=== PATIENT | male | born 1970 | race Caucasian/White ===

== ENCOUNTER 2016-08-10 07:24 | Emergency (ER) | payer OTHER ==
[~2016-08-10] VITALS: Ht 177.8 cm; Wt 136.1 kg
[~2016-08-10 07:24] MED LIST: CLARITIN10 MG PO; NEURONTIN300 MG; QUALITY CHOICE20 M1 PO; VIBRAMYCIN 100100 MG PO; WELLBUTRIN XL150 MG
[2016-08-10 07:30] VITALS: BP 142/85
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
[2016-08-10] MEDS ORDERED: MEDROL4 M2 PO (08:02)
[2016-08-10] MEDS ORDERED: OXYCODONE HCL5 M2 PO (08:02)
== END 2016-08-10 08:10 ==
LOC: ERH 07:24
DX: M54.16 Radiculopathy, lumbar region (principal)
CPT/HCPCS: 96372; J1885

== ENCOUNTER 2017-09-07 18:07 | Emergency (ER) | payer OTHER ==
[~2017-09-07] VITALS: Ht 177.8 cm; Wt 134.7 kg
[~2017-09-07 18:07] MED LIST changes: +MEDROL4 M2 PO; +OXYCODONE HCL5 M2 PO
[2017-09-07 18:21] VITALS: BP 129/87
--- NOTE | 2017-09-07 18:36 | ED GENERAL ADULT ---
History of Present Illness General Chief Complaint: Sore Throat, Dental Pain Stated Complaint: SORE THROAT Source: patient Exam Limitations: no limitations Vital Signs & Intake/Output Vital Signs & Intake/Output Vital Signs Date Time Temp Pulse Resp B/P B/P Pulse O2 O2 Flow FiO2 Mean Ox Delivery Rate 09/07 1917 Room Air 09/07 1858 98.4 09/07 1821 98.4 94 18 129/87 97 Room Air Allergies Coded Allergies: Penicillins (Severe, ANAPHALACTIC 08/10/16) venom-honey bee (Severe, ANAPHALACTIC 08/10/16) Reconcile Medications Bupropion Hydrochloride (Wellbutrin XL) (Unknown Strength) T24 (Unknown Dose) MENTAL HEALTH (Reported) Clarithromycin 500 MG TABLET 1 TAB PO BID PHARYNGITIS Gabapentin (Neurontin) (Unknown Strength) CAP (Unknown Dose) BID NEUROPATHY ( Reported) Ibuprofen 600 MG TABLET 1 TAB PO TID PRN PAIN with food Methylprednisolone. (Medrol) 4 MG TAB.DS.PK 1 DP PO AD radiculopaty 6 on day 1 then reduce by one tablet daily until gone OMEPRAZOLE MAGNESIUM (Omeprazole Magnesium) 20 MG ECC 1 CAP PO DAILY GI ( Reported) Oxycodone HCl 5 MG CAPSULE 1 CAP PO BID PRN pain Triage Note: RECEIVED 47 YO MALE C/O SORE THOAT WITH DIFFICULTY SWALLOWING, STARTED YESTERDAY. NO C/O CP, SOME SOB. UNABLE TO DRINK OR EAT AT PRESENT. Triage Nurses Notes Reviewed? yes Onset: Abrupt Duration: day(s): Timing: recent history HPI: 09/07/17 47-year-old man presents to the emergency department complaining of sore throat. The patient states he has had a sore throat for the past 48 hours. He says he does have difficulty swallowing. He denies fever. No shortness of breath or chest pain. He says he has a history of diet-controlled diabetes. He says that he has had many jolly rancher's today that have been helping with his sore throat. He denies vomiting or other complaints. Past History Travel History Traveled to [place] past 21 day No Medical History Any Pertinent Medical History? 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 No Review of Systems Review of Systems Constitutional: Denies: fever. EENTM: Reports: throat pain. Respiratory: Denies: cough, short of breath. Cardiovascular: Denies: chest pain. GI: Denies: abdominal pain. Genitourinary: Reports: no symptoms. Musculoskeletal: Reports: no symptoms. Skin: Reports: no symptoms. Neurological/Psychological: Reports: no symptoms. Hematologic/Endocrine: Reports: no symptoms. Immunologic/Allergic: Reports: no symptoms. Physical Exam Physical Exam General Appearance: well developed/nourished, alert, awake, anxious, mild distress Head: atraumatic, normal appearance Eyes: Bilateral: normal appearance, PERRL, EOMI. Ears, Nose, Throat: pharyngeal erythema, tonsillar exudate Neck: normal inspection, supple, full range of motion Respiratory: normal breath sounds, chest non-tender, no respiratory distress Cardiovascular: regular rate/rhythm Peripheral Pulses: 4+ radial (R), 4+ radial (L) Gastrointestinal: non-tender Back: normal range of motion Extremities: no edema Neurologic/Psych: no motor/sensory deficits, awake, alert, oriented x 3 Skin: intact, normal color, warm/dry Core Measures ACS in differential dx? No CVA/TIA Diagnosis: No Sepsis Present: No Sepsis Focused Exam Completed? No Progress Differential Diagnoses I considered the following diagnoses in my evaluation of the patient: [ Retropharyngeal abscess, peritonsillar abscess, mononucleosis, exudative pharyngitis, strep pharyngitis] Plan of Care: Orders Procedure Date/time Status FingerStick- Glucose 09/07 1858 Active THROAT CULTURE W/QUICK STREP 09/07 1824 Active Initial ED EKG: none Departure Departure Disposition: HOME OR SELF CARE Condition: Stable Clinical Impression Primary Impression: Exudative pharyngitis Referrals: Patient Has No Primary Care Dr (PCP/Family) Departure Forms: Customer Survey General Discharge Information Prescriptions: Current Visit Scripts Ibuprofen 1 TAB PO TID PRN PAIN #20 TAB with food Clarithromycin 1 TAB PO BID #20 TAB Comments 09/07/17 The patient has no stridor, no uvular deviation, no hoarseness. Pharynx shows exudative pharyngitis. We'll treat with Biaxin. Quick strep was negative. He was given ibuprofen for pain. He will follow-up with a [facility] physician on Wednesday or return to the emergency department sooner if worse. Critical Care Note Critical Care Note Critical Care Time: non-applicable
[2017-09-07] MEDS ORDERED: IBUPROFEN600 M1 PO (19:03)
[2017-09-07] MEDS ORDERED: CLARITHROMYCIN500 M1 PO (19:03)
== END 2017-09-07 19:18 ==
LOC: ERH 18:07
DX: J02.9 Acute pharyngitis, unspecified (principal)

== ENCOUNTER 2017-09-09 17:11 | Emergency (ER) | payer OTHER ==
[~2017-09-09] VITALS: Ht 177.8 cm; Wt 134.7 kg
[~2017-09-09 17:11] MED LIST changes: +CLARITHROMYCIN500 M1 PO; +IBUPROFEN600 M1 PO
--- NOTE | 2017-09-09 21:11 | ED SKIN/ALLERGY COMPLAINT ---
History of Present Illness General Chief Complaint: Skin Rash/ Abcess Stated Complaint: CYST ON BUTTOX, WORSENING SYMPTOMS X2DAYS Source: patient Exam Limitations: no limitations Allergies Coded Allergies: Penicillins (Severe, ANAPHALACTIC 09/09/17) venom-honey bee (Severe, ANAPHALACTIC 09/09/17) Reconcile Medications Bupropion Hydrochloride (Wellbutrin XL) (Unknown Strength) T24 (Unknown Dose) MENTAL HEALTH (Reported) Clarithromycin 500 MG TABLET 1 TAB PO BID PHARYNGITIS Fluconazole (Diflucan) 150 MG TABLET 1 TAB PO ONCE ORAL THRUSH Gabapentin (Neurontin) (Unknown Strength) CAP (Unknown Dose) BID NEUROPATHY ( Reported) Ibuprofen 600 MG TABLET 1 TAB PO TID PRN PAIN with food Methylprednisolone. (Medrol) 4 MG TAB.DS.PK 1 DP PO AD radiculopaty 6 on day 1 then reduce by one tablet daily until gone Nystatin 100,000 UNIT/ML ORAL.SUSP 5 ML PO 4 TIMES/DAY ORAL THRUSH OMEPRAZOLE MAGNESIUM (Omeprazole Magnesium) 20 MG ECC 1 CAP PO DAILY GI ( Reported) Oxycodone HCl 5 MG CAPSULE 1 CAP PO BID PRN pain Sulfamethoxazole/Trimethoprim (Bactrim Ds Tablet) 800 MG-160 MG TABLET 1 TAB PO BID ABSCESS Triage Note: PT TO ED FOR C/C OF THROAT PAIN AND SWELLING, RECENTLY PUT ON ANTIBIOTICS FOR IT. ALSO REPORTS PAIN TO R BUTT CHEEK THAT STARTED YESTERDAY AND HAS BEEN DRAINING TODAY. 99.9 TEMP IN TRIAGE. Triage Nurses Notes Reviewed? yes Onset: Abrupt Duration: day(s):, constant, getting worse Timing: recent history Severity: moderate, severe HPI: 47-year-old male comes into emergency room with swelling and pain to his right buttocks near his rectum. Patient reports that he has an abscess. He was started on clindamycin. He said increased pain and swelling. Associated fever chills body aches. Comes in for further evaluation. (Filemon LLOYD,Rodrigo) Vital Signs & Intake/Output Vital Signs & Intake/Output Vital Signs Date Time Temp Pulse Resp B/P B/P Pulse O2 O2 Flow FiO2 Mean Ox Delivery Rate 09/10 0033 98.0 90 22 140/78 98 09/09 2241 Room Air ED Intake and Output 09/10 0000 09/09 1200 Intake Total 1000 Output Total Balance 1000 Intake, IV 1000 Patient 297 lb Weight Weight Reported by Patient Measurement Method (Juan Carlos Albert) Past History Travel History Traveled to [place] past 21 day No Medical History Any Pertinent Medical History? 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 No (Rodrigo Pickard) Review of Systems Review of Systems Constitutional: Reports: no symptoms. EENTM: Reports: no symptoms. Respiratory: Reports: no symptoms. Cardiovascular: Reports: no symptoms. GI: Reports: no symptoms. Genitourinary: Reports: no symptoms. Musculoskeletal: Reports: no symptoms. Skin: Reports: see HPI. Neurological/Psychological: Reports: no symptoms. Hematologic/Endocrine: Reports: no symptoms. Immunologic/Allergic: Reports: no symptoms. All Other Systems: Reviewed and Negative (Rodrigo Pickard) Physical Exam Physical Exam General Appearance: well developed/nourished, mild distress Head: atraumatic Eyes: Bilateral: normal appearance. Ears, Nose, Throat: normal ENT inspection, hearing grossly normal Neck: normal inspection Respiratory: no respiratory distress Cardiovascular: regular rate/rhythm Back: normal inspection Extremities: normal inspection, normal range of motion, no edema Neurologic/Psych: awake, alert, oriented x 3, normal mood/affect Skin: intact, rash Skin Problem Location: swelling to right gluteal cleft, induration, warmth, erythema, approximately lemon-sized (Rodrigo Pickard) Progress Differential Diagnosis: abscess/cellulitis, contact dermatitis, sepsis, cellulitis, Diagnostic Imaging: Viewed by Me: CT Scan. Discussed w/RAD: CT Scan. (Rodrigo Pickard) Plan of Care: Orders Procedure Date/time Status TRUNK AREA CULTURE 09/09 2341 Active Laboratory Tests 09/10/17 0015: Lactic Acid Cancelled Microbiology 09/10 16 TRUNK: Culture & Sensitivity - RES 09/10 16 TRUNK: Gram Stain - RES Patient was signed out to me by physician assistant women's tennis coach Rodrigo Colbert. He has a perianal/perirectal abscess. CT scan is negative for any deep colorectal involvement. The area was clean with Betadine 1% lidocaine without epi was used for local pain control. An 11 blade used to open the area of focal fluctuance copious amounts of purulent discharge expressed. Culture obtained. Sterile dressing applied. Discussed wound care procedures in detail apply warm compresses return in 2 or 3 days for wound check. Clarithromycin will be discontinued start Bactrim. Patient will also be given a prescription for nystatin oral solution and a dose of fluconazole for oral thrush. Discussed return precautions in detail. Patient agrees the plan Radiology Impression: PATIENT: JENNIFER GILL PRESENT AGE: 47 PATIENT ACCOUNT NO: [id number] : 72 LOCATION: [facility] ORDERING PHYSICIAN: Rodrigo LLOYD SERVICE DATE: 09/09/17 EXAM TYPE : CAT - CT ABD & PELVIS W IV CONTRAST EXAMINATION: CT ABDOMEN AND PELVIS WITH CONTRAST CLINICAL INFORMATION: Rule out perirectal abscess, swelling, pain, induration COMPARISON: None TECHNIQUE: Multidetector volumetric imaging was performed of the abdomen and pelvis following IV administration of 95 mL of Optiray 320 intravenous contrast. Sagittal and coronal reformatted images were obtained on the technologist's workstation. DLP: 2083.42 mGy-cm FINDINGS: LUNG BASES: The visualized lung bases are unremarkable. LIVER, GALLBLADDER, AND BILIARY TREE: The liver demonstrates hypoattenuation suggesting steatosis. No focal hepatic lesion or biliary ductal dilatation is present. The gallbladder is unremarkable with no evidence of radiopaque gallstones, gallbladder wall thickening, or obvious pericholecystic inflammatory changes. PANCREAS: Unremarkable. SPLEEN: Enlarged, measuring approximately 16 cm in craniocaudal dimension. ADRENAL GLANDS: Unremarkable. KIDNEYS AND URETERS: The kidneys are normal in size, shape, and attenuation. Tiny bilateral renal calculi are noted. No hydronephrosis, hydroureter, or obstructing calculi seen. There is mild nonspecific bilateral perinephric stranding. BLADDER: Unremarkable. GASTROINTESTINAL TRACT: The small and large bowel are unremarkable. The appendix is unremarkable. ABDOMINAL WALL: No significant hernia is appreciated. There is subcutaneous edema with overlying skin thickening in the posterior medial right gluteal region, with no discrete fluid collection seen to suggest abscess formation. LYMPH NODES: Normal. VASCULAR: Unremarkable. PELVIC VISCERA: Unremarkable. OSSEOUS STRUCTURES: Unremarkable. IMPRESSION: 1. Subcutaneous edema with overlying skin thickening in the posterior medial right gluteal region suggesting cellulitis, without discrete abscess. 2. Splenomegaly. 3. Tiny bilateral renal calculi without hydronephrosis. 4. Suspect hepatic steatosis. DICTATED BY: Acosta Cui MD DATE/TIME DICTATED:09/09/172321 CABLE STRANDER:ALMAS DATE/TIME TRANSCRIBED:09/09/172321 CONFIDENTIAL, DO NOT COPY WITHOUT APPROPRIATE AUTHORIZATION. (Juan Carlos Albert) Departure Departure Condition: Stable Departure Forms: Customer Survey General Discharge Information (Rodrigo Pickard) Departure Disposition: HOME OR SELF CARE Clinical Impression Primary Impression: Perianal abscess Secondary Impressions: Oral thrush Referrals: Patient Has No Primary Care Dr (PCP/Family) Benson ELLIS,Juan Carlos Titus Additional Instructions: Discontinue clarithromycin. Start Bactrim for the full course. Also use fluconazole and nystatin for oral thrush. Apply warm compresses to the area for 15-20 minutes every few hours. Tylenol or Profen for pain. Change dressing once daily. Make a follow APPT with provide a general surgeon Dr. Knowles or return to the emergency department for recheck in 2 or 3 days. Prescriptions: Current Visit Scripts Sulfamethoxazole/Trimethoprim (Bactrim Ds Tablet) 1 TAB PO BID #14 TAB Fluconazole (Diflucan) 1 TAB PO ONCE #1 TAB Nystatin 5 ML PO 4 TIMES/DAY #200 ML (Juan Carlos Albert) PA/AERONAUTICAL DESIGN ENGINEER Co-Sign Statement Statement: ED Attending supervision documentation- [] I saw and evaluated the patient. I have also reviewed all the pertinent lab results and diagnostic results. I agree with the findings and the plan of care as documented in the PA's/AERONAUTICAL DESIGN ENGINEER's documentation. [x] I have reviewed the ED Record and agree with the PA's/AERONAUTICAL DESIGN ENGINEER's documentation. [] Additions or exceptions (if any) to the PAs/AERONAUTICAL DESIGN ENGINEER's note and plan are summarized below: [] (Shane ELLIS,Burt Martin) Procedures Incision and Drainage Site: PERIANAL Blade Size: 11 I & D Procedure: Yes: betadine prep, sterile drapes applied, sterile dressing applied. No: wick placed. Progress: There is clean with Betadine 1% lidocaine without epi was local pain control. 11 blade was used to open the area of focal fluctuance copious amounts of purulent discharge expressed culture obtained sterile dressing applied patient tolerated well (Juan Carlos Albert) placed. Progress: There is clean with Betadine 1% lidocaine without epi was local pain control. 11 blade was used to open the area of focal fluctuance copious amounts of purulent discharge expressed culture obtained sterile dressing applied patient tolerated well (Jose LLOYD,Juan Carlos)
[2017-09-09 21:45] LABS: ABSOLUTE BASOPHIL COUNT 0 /CUMM (0.0-0.2); ABSOLUTE EOSINOPHIL COUNT 0.1 /CUMM (0.0-0.7); ABSOLUTE GRANULOCYTE CT 7.7 /CUMM (1.4-6.5); ABSOLUTE LYMPH COUNT 1.4 /CUMM (1.2-3.4); ABSOLUTE MONOCYTE COUNT 0.9 /CUMM (0.10-0.60); BASOPHIL % 0.4 % (0.0-2.0); EOSINOPHIL % 0.7 % (0-5); GRANULOCYTE % 76.3 % (42.2-75.2); HEMATOCRIT 40.3 % (42-52); MEAN CORPUSCULAR HGB 27.4 PG (27.0-31.0); MEAN CORPUSCULAR VOLUME 80.5 FL (80.0-94.0); MEAN PLATELET VOLUME 7.2 FL (7.4-10.4); PLATELET COUNT 170 /CUMM (130-400); RBC DISTRIBUTION WIDTH 13.2 % (11.5-14.5); WHITE BLOOD CELL COUNT 10.1 /CUMM (4.8-10.8)
--- NOTE | 2017-09-09 23:35 | CT SCAN REPORT ---
EXAMINATION: CT ABDOMEN AND PELVIS WITH CONTRAST CLINICAL INFORMATION: Rule out perirectal abscess, swelling, pain, induration COMPARISON: None TECHNIQUE: Multidetector volumetric imaging was performed of the abdomen and pelvis following IV administration of 95 mL of Optiray 320 intravenous contrast. Sagittal and coronal reformatted images were obtained on the technologist's workstation. DLP: 2083.42 mGy-cm FINDINGS: LUNG BASES: The visualized lung bases are unremarkable. LIVER, GALLBLADDER, AND BILIARY TREE: The liver demonstrates hypoattenuation suggesting steatosis. No focal hepatic lesion or biliary ductal dilatation is present. The gallbladder is unremarkable with no evidence of radiopaque gallstones, gallbladder wall thickening, or obvious pericholecystic inflammatory changes. PANCREAS: Unremarkable. SPLEEN: Enlarged, measuring approximately 16 cm in craniocaudal dimension. ADRENAL GLANDS: Unremarkable. KIDNEYS AND URETERS: The kidneys are normal in size, shape, and attenuation. Tiny bilateral renal calculi are noted. No hydronephrosis, hydroureter, or obstructing calculi seen. There is mild nonspecific bilateral perinephric stranding. BLADDER: Unremarkable. GASTROINTESTINAL TRACT: The small and large bowel are unremarkable. The appendix is unremarkable. ABDOMINAL WALL: No significant hernia is appreciated. There is subcutaneous edema with overlying skin thickening in the posterior medial right gluteal region, with no discrete fluid collection seen to suggest abscess formation. LYMPH NODES: Normal. VASCULAR: Unremarkable. PELVIC VISCERA: Unremarkable. OSSEOUS STRUCTURES: Unremarkable. IMPRESSION: 1. Subcutaneous edema with overlying skin thickening in the posterior medial right gluteal region suggesting cellulitis, without discrete abscess. 2. Splenomegaly. 3. Tiny bilateral renal calculi without hydronephrosis. 4. Suspect hepatic steatosis.
[2017-09-10] MEDS ORDERED: BACTRIM DS TAB1 EACH PO (00:20)
[2017-09-10] MEDS ORDERED: NYSTATIN100000 UNI PO (00:20)
[2017-09-10] MEDS ORDERED: DIFLUCAN150 M1 PO (00:20)
[2017-09-10 00:33] VITALS: BP 140/78
== END 2017-09-10 00:32 ==
LOC: ERH 17:11
PROVIDERS: Physician Assistant Medical
DX: K61.0 Anal abscess (principal); B37.0 Candidal stomatitis
CPT/HCPCS: 74177; 87040; 87070; 87147; J0131